=== PATIENT | female | born 1945 | race African-American/Black ===

== ENCOUNTER 2017-07-02 10:34 | Inpatient (IN) ==
[2017-07-02] MEDS ORDERED: PHENYTOIN INJ 1,000 MG in SODIUM CHLORIDE 0.9% 100 ML IV STA (12:10)
[2017-07-02] MEDS ORDERED: PHENYTOIN 250 MG/5 ML VIAL IV ONE (12:43)
[2017-07-02] MEDS: ASPIRIN 325 MG TABLET PO SCH (13:50)
[2017-07-02 14:22] LABS: Basophils % 0.1 % (0.0-0.8); Eosinophils % 0.1 % (0.00-10.9); Hematocrit 39.2 VOL% (35.7-47.0); Hemoglobin 12.2 GM/DL (12.0-16.0); Immature Granulocytes % 0.3 %; Immature Granulocytes Absolute 0.02 #; Lymphocytes % 40.2 % (21.3-54.2); Mean Corpuscular HGB Conc 31.1 GM/DL (32-36); Mean Corpuscular Hemoglobin 24 PG (27-34); Mean Corpuscular Volume 75.4 FL (87-102); Mean Platelet Volume 10.6 FL (9.6-12.0); Monocytes # 0.7 10*3/uL (0.11-0.8); Monocytes % 9.1 % (1.7-12.7); Neutrophils # 3.7 10*3/uL (1.4-7.4); Neutrophils % 50.2 % (38.7-73.9); Platelet Count 171 T/CUMM (130-400); White Blood Count 7.3 T/CUMM (4-12)
[2017-07-02] MEDS: FLUCONAZOLE 100 MG TABLET PO SCH (17:34)
[2017-07-02] MEDS ORDERED: GLUCAGON 1 MG VIAL IM PRN (17:40)
[2017-07-02] MEDS ORDERED: DEXTROSE 50% 25 GM/50 ML VIAL IV PRN (17:40)
[2017-07-02 19:57] LABS: Barbiturates Screen,Urine Negative (Negative); Benzodiazepines Screen,Urine Negative (Negative); Cannabinoid Screen,Urine Negative (Negative); Opiate Screen,Urine Negative (Negative); Phencyclidine Screen,Urine Negative (Negative)
[2017-07-02] MEDS: INSULIN GLARGINE 100 UNIT/ML SUBCUT SCH (21:13)
[2017-07-02] MEDS: INSULIN LISPRO 100 UNIT/ML SUBCUT SCH (21:14)
[2017-07-02] MEDS: ENOXAPARIN 40 MG/0.4 ML SYRINGE SUBCUT SCH (21:14)
[2017-07-02] MEDS: ATORVASTATIN 40 MG TABLET PO SCH (21:14)
[2017-07-02] MEDS: PHENYTOIN 100 MG/2 ML VIAL IV SCH (21:15)
[2017-07-03 04:12] LABS: Basophils % 0.1 % (0.0-0.8); Eosinophils % 0.4 % (0.00-10.9); Hematocrit 34.2 VOL% (35.7-47.0); Hemoglobin 11.3 GM/DL (12.0-16.0); Immature Granulocytes % 0.3 %; Immature Granulocytes Absolute 0.02 #; Lymphocytes # 2.7 10*3/uL (1.4-4.0); Lymphocytes % 39.5 % (21.3-54.2); Mean Corpuscular Hemoglobin 24 PG (27-34); Mean Corpuscular Volume 71.7 FL (87-102); Mean Platelet Volume 9.6 FL (9.6-12.0); Monocytes # 0.7 10*3/uL (0.11-0.8); Monocytes % 10.6 % (1.7-12.7); Neutrophils # 3.3 10*3/uL (1.4-7.4); Neutrophils % 49.1 % (38.7-73.9); Platelet Count 179 T/CUMM (130-400); Red Blood Count 4.77 MC/CUMM (3.8-5.5); Red Cell Distribution Width 14.8 % (9.3-17.3); White Blood Count 6.8 T/CUMM (4-12)
[2017-07-03 04:40] LABS: Osmolality,Calculated 286.3 MOS/KG (273-304); Potassium 3.2 MMOL/L (3.5-5.1)
[2017-07-03 04:42] LABS: Risk Ratio 3.65; VLDL CHOLESTEROL 14.2 MG/DL
[2017-07-03] MEDS: PHENYTOIN 100 MG/2 ML VIAL IV SCH (10:29)
[2017-07-03] MEDS: ASPIRIN 325 MG TABLET PO SCH (10:29)
[2017-07-03] MEDS: FLUCONAZOLE 100 MG TABLET PO SCH (10:29)
[2017-07-03] MEDS: INSULIN LISPRO 100 UNIT/ML SUBCUT SCH ×5 (10:30→21:54)
[2017-07-03] MEDS: POTASSIUM CHLORIDE 20 MEQ TABLET PO SCH (10:35)
[2017-07-03] MEDS: INSULIN GLARGINE 100 UNIT/ML SUBCUT SCH ×2 (10:36→21:54)
[2017-07-03] MEDS: ATORVASTATIN 40 MG TABLET PO SCH (21:53)
[2017-07-03] MEDS: ENOXAPARIN 40 MG/0.4 ML SYRINGE SUBCUT SCH (21:53)
[2017-07-04 08:01] LABS: Calcium 8.7 MG/DL (8.5-10.1); Osmolality,Calculated 280.1 MOS/KG (273-304); Potassium 3.3 MMOL/L (3.5-5.1)
[2017-07-04] MEDS: INSULIN LISPRO 100 UNIT/ML SUBCUT SCH ×2 (08:57→12:42)
[2017-07-04] MEDS: FLUCONAZOLE 100 MG TABLET PO SCH (09:05)
[2017-07-04] MEDS: POTASSIUM CHLORIDE 20 MEQ TABLET PO SCH (09:05)
[2017-07-04] MEDS: ASPIRIN 325 MG TABLET PO SCH (09:05)
[2017-07-04] MEDS: INSULIN GLARGINE 100 UNIT/ML SUBCUT SCH (09:06)
[2017-07-04 09:10] LABS: Basophils % 0.4 % (0.0-0.8); Eosinophils % 0.4 % (0.00-10.9); Hematocrit 37.5 VOL% (35.7-47.0); Hemoglobin 11.8 GM/DL (12.0-16.0); Immature Granulocytes % 0.2 %; Immature Granulocytes Absolute 0.01 #; Lymphocytes # 2.1 10*3/uL (1.4-4.0); Lymphocytes % 41.9 % (21.3-54.2); Mean Corpuscular HGB Conc 31.5 GM/DL (32-36); Mean Corpuscular Hemoglobin 23 PG (27-34); Mean Corpuscular Volume 74.4 FL (87-102); Mean Platelet Volume 9.3 FL (9.6-12.0); Monocytes # 0.6 10*3/uL (0.11-0.8); Monocytes % 10.8 % (1.7-12.7); Neutrophils # 2.4 10*3/uL (1.4-7.4); Neutrophils % 46.3 % (38.7-73.9); Platelet Count 183 T/CUMM (130-400); Red Blood Count 5.04 MC/CUMM (3.8-5.5); Red Cell Distribution Width 15.1 % (9.3-17.3); White Blood Count 5.1 T/CUMM (4-12)
[2017-07-04 09:30] LABS: Albumin 3.2 G/DL (3.4-5.0); Bilirubin,Total 0.5 MG/DL (0.2-1.0); Calcium 8.8 MG/DL (8.5-10.1); Osmolality,Calculated 277.4 MOS/KG (273-304); Potassium 3.2 MMOL/L (3.5-5.1); Total Protein 6.7 G/DL (6.4-8.3)
[2017-07-04 12:03] VITALS: BP 132/69
== END 2017-07-04 13:03 | disposition home health service (06) | DRG 638 ==
LOC: N.ED 10:34 → N.EDINP 11:32 → SUATTDRO 11:32 → N.EDINP 13:13 → N.2E 13:38
PROVIDERS: ADMIT Internal Medicine; ATTEND Family Medicine